=== PATIENT | female | born 2000 | race Hispanic/Latino ===

== ENCOUNTER 2024-05-04 03:31 | Inpatient (IN) | payer OTHER ==
[2024-05-04 05:11] VITALS: BMI 31.7
[2024-05-04] MEDS ORDERED: Acetaminophen 650 MG Suppository PR PRN (05:15)
[2024-05-04] MEDS ORDERED: Ondansetron ODT 4 MG TAB PO PRN (05:15)
[2024-05-04] MEDS ORDERED: Morphine 4 MG/ML VIAL SLOW IVP PRN (05:18)
[2024-05-04] MEDS ORDERED: Morphine 2 MG/ML VIAL SLOW IVP PRN (05:18)
[2024-05-04] MEDS: cefTRIAXone\\ROCEPHIN 2 GM in Sodium Chloride 0.9% 100 ML IVPB SCH (05:41)
[2024-05-04] MEDS: Sodium Chloride 0.9% 1,000 ML IV SCH (05:42)
[2024-05-04] MEDS ORDERED: Enoxaparin 40 MG (0.4 mL) SYRINGE SC SCH (09:00)
[2024-05-04 10:01] LABS: ALT (SGPT) 136 U/L (8-55); AST (SGOT) 59 U/L (5-34); Albumin 3.5 g/dL (3.5-5.0); Alkaline Phosphatase 99 U/L (40-110); Bilirubin, Direct 0.6 mg/dL (0.1-0.3); Bilirubin, Total 1.1 mg/dL (0.2-1.2); Protein, Total 7.2 g/dL (6.0-8.3)
[2024-05-04] MEDS: Acetaminophen 325 MG TAB PO PRN (16:57)
[2024-05-04] MEDS: Ondansetron PF 4 MG/2 ML Vial IVP PRN (21:24)
[2024-05-05 06:25] LABS: #Basophils 0.03 10x3/uL (0.0-0.2); %Basophils 0.3 % (0.0-1.0); %Eosinophils 1.4 % (0.0-10.0); %Lymphocytes 20.7 % (21.0-51.0); %Monocytes 7.1 % (0.0-10.0); %Neutrophils 70.1 % (42.0-75.0); Hemoglobin 12.1 g/dL (12.0-16.0); Mean Corpuscular HGB CONC 33.6 g/dL (32.0-36.0); Mean Corpuscular Hemoglobin 30.9 pg (27.0-31.0); Mean Corpuscular Volume 92.1 fL (78.0-98.0); Mean Platelet Volume 11.6 fL (7.4-10.4); Platelet Count 242 10x3/uL (130-400); RBC Distribution Width 12.4 % (11.5-14.5); Red Blood Cell (RBC) Count 3.91 mill/uL (4.20-5.40)
[2024-05-05 06:41] LABS: Lipase 288 U/L (8-78); Phosphorus 2.8 mg/dL (2.3-4.7)
[2024-05-05 06:48] LABS: ALT (SGPT) 90 U/L (8-55); AST (SGOT) 30 U/L (5-34); Albumin 3.2 g/dL (3.5-5.0); Alkaline Phosphatase 81 U/L (40-110); Anion Gap 13 mmol/L (10-20); BUN (Urea Nitrogen) 5 mg/dL (7.0-18.7); Bilirubin, Total 0.9 mg/dL (0.2-1.2); Calc. Creatinine Clearance 146 mL/min (70-130); Calcium 8.6 mg/dL (7.8-10.44); Carbon Dioxide 20 mmol/L (22-29); Chloride 109 mmol/L (98-107); Estimated GFR 124; Globulin 3.2 g/dL (2.4-3.5); Glucose 87 mg/dL (70-105); Magnesium 1.8 mg/dL (1.6-2.6); Potassium 3.4 mmol/L (3.5-5.1); Protein, Total 6.4 g/dL (6.0-8.3); Sodium 139 mmol/L (136-145)
[2024-05-05] MEDS: Indocyanine Green 25 MG/10 ML VIAL IVP SCH (13:02)
[2024-05-05] MEDS ORDERED: EPINEPHrine 1 MG/ML VIAL ONE (15:08)
[2024-05-05] MEDS ORDERED: Bupivacaine PF 0.5% 30 ML VIAL ONE (15:09)
[2024-05-05] MEDS ORDERED: Heparin 5,000 UNITS/ML VIAL ONE (15:19)
[2024-05-05] MEDS ORDERED: CEFAZOLIN 2 GM VIAL ONE (15:19)
[2024-05-05] MEDS ORDERED: Midazolam HCl 2 mg/2 ml Vial ONE (15:23)
[2024-05-05] MEDS ORDERED: PROPOFOL 20 ML ONE (15:23)
[2024-05-05] MEDS ORDERED: Rocuronium Bromide 10 MG/ML (10ML VIAL) ONE (15:23)
[2024-05-05] MEDS ORDERED: PHENYLEPHRINE-NS 100 MCG/ML 10 ML SYRINGE ONE (15:23)
[2024-05-05] MEDS ORDERED: Lidocaine 1% PF 5 ML VIAL ONE (15:23)
[2024-05-05] MEDS ORDERED: Glycopyrrolate 0.2 MG/ML 5 ML SYRINGE ONE ×2 (15:23→15:24)
[2024-05-05] MEDS ORDERED: fentaNYL PF 100 MCG/2 ML SYRINGE ONE (15:23)
[2024-05-05] MEDS ORDERED: Ondansetron PF 4 MG/2 ML Vial ONE (15:24)
[2024-05-05] MEDS ORDERED: Dexamethasone 4 mg/ml Vial ONE (15:24)
[2024-05-05] MEDS ORDERED: Dexmedetomidine 200 MCG/2 ML VIAL ONE (15:53)
[2024-05-05] MEDS ORDERED: HYDROmorphone 2 MG/ML VIAL ONE (16:03)
[2024-05-05] MEDS ORDERED: SUGAMMADEX SODIUM 200 MG/2 ML VIAL ONE (16:28)
[2024-05-05] MEDS ORDERED: Dextrose 5% in Water 1,000 ML IV PRN (16:57)
[2024-05-05] MEDS ORDERED: Calcium Carbonate 500 MG ChewTAB PO PRN (16:57)
[2024-05-05] MEDS ORDERED: Dextrose 50% Abboject 50 ML SYRINGE SLOW IVP PRN (16:57)
[2024-05-05] MEDS ORDERED: Ondansetron PF 4 MG/2 ML Vial IVP PRN (16:57)
[2024-05-05] MEDS ORDERED: Glucagon 1 MG/ML KIT IM PRN (16:57)
[2024-05-05] MEDS ORDERED: Meperidine HCl/PF 25 MG (1 mL) VIAL ONE (17:05)
[2024-05-05] MEDS: Ketorolac Tromethamine 30 MG (1 mL) VIAL IVP SCH (17:36)
[2024-05-05] MEDS: D5 1/2 NS w/20 mEq KCL 1,000 ML IV SCH (17:36)
[2024-05-05] MEDS: HYDROcodone/Acetaminophen 10/325 mg Tablet PO PRN (19:13)
[2024-05-05] MEDS: Famotidine 20 MG TAB PO SCH (19:13)
[2024-05-06 07:10] VITALS: BP 108/69; TEMP 98.4
[2024-05-07] MEDS ORDERED: FLU (Fluarix Triv) TS24-25(6MOS UP)/PF 45 MCG/0.5 ML Syringe IM ONE (09:00)
== END 2024-05-06 10:31 | disposition home or self-care (01) | DRG 417 ==
LOC: SURG B 04:28
PROVIDERS: ADMIT Family Medicine; ATTEND Internal Medicine
PROC: 0FT44ZZ Resection of Gallbladder, Percutaneous Endoscopic Approach (ICD-10-PCS; principal; 2024-05-05)
PROC: 8E0W4CZ Robotic Assisted Procedure of Trunk Region, Percutaneous Endoscopic Approach (ICD-10-PCS; 2024-05-05)
PROC: BF141ZZ Fluoroscopy of Gallbladder, Bile Ducts and Pancreatic Ducts using Low Osmolar Contrast (ICD-10-PCS; 2024-05-05)
DX: K80.50 Calculus of bile duct without cholangitis or cholecystitis without obstruction (principal); K85.10 Biliary acute pancreatitis without necrosis or infection; N39.0 Urinary tract infection, site not specified; Z91.013 Allergy to seafood; Z79.899 Other long term (current) drug therapy
CPT/HCPCS: 36415; 74177; 76705; 80053; 80076; 81001; 81025; 83690; 83735; 84100; 85025; 88304; 96361; 96374; 96375; C1889; J0171; J0665; J0696; J1100; J1644; J1885; J2175; J2250; J2405; J2704; J3480; J7030; Q9967